=== PATIENT | male | born 2000 | race Caucasian/White ===

== ENCOUNTER 2020-03-12 01:18 | Emergency (ER) | payer BC ==
[~2020-03-12] VITALS: Ht 182.9 cm; Wt 83.9 kg
[2020-03-12] MEDS ORDERED: TDAP [DIPH/PERTUSSIS/TET] 0.5 ML VIAL IM ONE ×2 (01:29→01:30)
--- NOTE | 2020-03-12 01:30 | NUR ---
PT AAOX4. DENIES SI AND HI. C/O L FOREARM LACERATION FROM GLASS APPROX 3CM LONG, 2CM WIDE. (+) ETOH.
--- NOTE | 2020-03-12 01:32 | NUR ---
EMT AT BEDSIDE FOR WOUND CARE
[2020-03-12] MEDS ORDERED: LIDOCAINE 1%-EPI 1:100,000 20 ML VIAL ONE (01:45)
--- NOTE | 2020-03-12 01:48 | NUR ---
SPOKE TO PT'S FATHER. HE STATED THAT THE PATIENT DOES NOT USUALLY DRINK. PT DRANK TONIGHT AND PROBABLY FELL SOMEWHERE WHICH LEAD TO HIM CUTTING HIS ARM. ALSO STATED PT DOES NOT HAVE "THAT MINDSET" WHEN I ASKED IF THERE WAS ANY INTENT TO HARM.
[2020-03-12] MEDS ORDERED: ONDANSETRON 4 MG TAB.RAPDIS ONE (01:50)
[2020-03-12] MEDS ORDERED: ONDANSETRON 4 MG TAB.RAPDIS SL ONE (02:00)
--- NOTE | 2020-03-12 02:04 | NUR ---
AT BEDSIDE FOR SUTURE
--- NOTE | 2020-03-12 02:20 | NUR ---
EMT AT BEDSIDE FOR DRESSING.
[2020-03-12 02:24] VITALS: BP 122/61
--- NOTE | 2020-03-12 02:24 | NUR ---
Patient discharged to home in stable condition. Written and verbal after care instructions given. Patient verbalizes understanding of instruction. Pt ambualted with steady gait. vss. Picked up by father.
== END 2020-03-12 02:24 | disposition home or self-care (01) ==
LOC: ER 01:21
DX: S51.812A Laceration without foreign body of left forearm, initial encounter (principal); F10.129 Alcohol abuse with intoxication, unspecified; W25.XXXA Contact with sharp glass, initial encounter; Y93.89 Activity, other specified; Y92.89 Other specified places as the place of occurrence of the external cause; Y99.8 Other external cause status; Y90.9 Presence of alcohol in blood, level not specified
CPT/HCPCS: 12002; 73090; 90471; 90715; 99283; A6403; J3490; Q0162